=== PATIENT | female | born 1955 | race Hispanic/Latino ===

== ENCOUNTER → 2016-12-27 | Outpatient (CLI) | payer OTHER ==
--- NOTE | 2016-12-28 10:45 | MAM ---
History: Well woman exam. Date of exam: 12/27/2016 Services provided: Bilateral full field digital screening mammography. CAD, the images were reviewed with R2 computer aided detection. FINDINGS: Glandular tissue is scattered glandular contour with increased mammographic density. Comparison with 2014 study. Stable distribution. No dominant mass, architectural distortion or clustered microcalcification. Fairly extensive vascular calcifications bilaterally. : IMPRESSION: Benign exam Recommendation: Routine annual mammography BIRAD CATEGORY: 2 BENIGN Electronically signed by: Katrina Beckwith MD 12/28/2016 10:44 AM CDT
== END | disposition home or self-care (01) ==
LOC: MAMMO 16:09
PROVIDERS: ATTEND Family Medicine
DX: Z12.31 Encounter for screening mammogram for malignant neoplasm of breast (principal)